=== PATIENT | female | born 1980 | race Caucasian/White ===

== ENCOUNTER 2020-07-30 12:00 | Emergency (ER) | payer SELFPAY ==
[~2020-07-30] VITALS: Ht 154.9 cm; Wt 63.6 kg
[2020-07-30 12:07] VITALS: Ht 154.9 cm; Wt 63.6 kg
[2020-07-30 12:52] LABS: BASOPHILS 0.3 % (0-2); EOSINOPHILS 1.5 % (0-7); HEMATOCRIT 41.5 % (36.0-48.0); IMMATURE GRANULOCYTES 0.3 % (0-5); LYMPHOCYTE ABS# 1.89 10x3/uL (1.18-3.74); LYMPHOCYTES 21.9 % (15-50); MCH 31.3 pg (26.0-34.0); MCHC 33.7 g/dL (31.0-37.0); MCV 92.8 fL (80.0-100.0); MEAN PLATELET VOLUME 10.4 fL (7.4-10.4); NEUTROPHIL ABS# 5.77 10x3/uL (1.56-6.13); PLATELET COUNT 237 10x3/uL (130-400); RBC 4.47 10x6/uL (4.00-5.40); RDW 12.7 % (11.5-14.5); WBC 8.6 10x3/uL (4.8-10.8)
[2020-07-30 12:55] LABS: APTT 28.5 SECONDS (22.8-39.4); INR 1.05 (0.85-1.17); PROTIME 12.6 SECONDS (11.6-15.0)
[2020-07-30 12:57] LABS: CALC OSMOLALITY 278 mosm/kg (275-300); CALCIUM 9.1 mg/dL (8.5-10.1); CARBON DIOXIDE 24.3 mmol/L (21.0-32.0); CHLORIDE - SERUM 104 mmol/L (98-107); CREATININE - SERUM 0.7 mg/dL (0.6-1.3); GLUCOSE 98 mg/dL (74-106); POTASSIUM - SERUM 3.9 mmol/L (3.5-5.1); SODIUM 139 mmol/L (136-145); UREA NITROGEN 14 mg/dL (7-18); eGFR NON AFRICAN AMERICAN > 90 mL/min (90-120)
[2020-07-30 13:02] LABS: ALBUMIN 4.4 g/dL (3.4-5.0); ALKALINE PHOSPHATASE 55 U/L (30-120); ALT (SGPT) 17 U/L (10-68); BILIRUBIN - TOTAL 0.47 mg/dL (0.2-1.3); PROTEIN - SERUM 7.5 g/dL (6.4-8.2)
[2020-07-30 14:03] LABS: BILIRUBIN NEGATIVE (NEGATIVE); KETONE SMALL mg/dL (NEGATIVE); NITRITE NEGATIVE (NEGATIVE); UROBILINOGEN NORMAL mg/dL (< 2)
[2020-07-30 14:07] LABS: AMORPHOUS SEDIMENT <1+ LPF (NONE SEEN); BACTERIA FEW HPF (NONE SEEN); GRANULAR CAST RARE LPF (NONE SEEN); SQUAMOUS EPITHELIAL 0-5 HPF (0-4); WHITE CELLS - URINE RARE HPF (0-4)
[2020-07-30] MEDS ORDERED: IBUPROFEN800 MG PO (16:50)
[2020-07-30] MEDS ORDERED: ACETAMINOPHEN500 M1 PO (16:50)
[2020-07-30] MEDS ORDERED: CYCLOBENZAPRINE10 MG PO (16:50)
[2020-07-30] MEDS ORDERED: ZOFRAN ODT4 MG/UDTAB PO (16:52)
[2020-07-30] MEDS ORDERED: ULTRAM50 MG PO (16:52)
[2020-07-30] MEDS ORDERED: FLAGYL500 MG PO (17:15)
[2020-07-30 17:56] VITALS: BP 106/65
== END 2020-07-30 17:56 | disposition home or self-care (01) ==
LOC: D.ER 12:00
PROVIDERS: Family Medicine
DX: N83.202 Unspecified ovarian cyst, left side (principal); R10.30 Lower abdominal pain, unspecified; R10.2 Pelvic and perineal pain; N28.9 Disorder of kidney and ureter, unspecified; R31.9 Hematuria, unspecified; N28.1 Cyst of kidney, acquired

== ENCOUNTER 2020-10-01 22:10 | Emergency (ER) | payer BC ==
[~2020-10-01] VITALS: Ht 154.9 cm; Wt 52.3 kg
[~2020-10-01 22:10] MED LIST: ACETAMINOPHEN500 M1 PO; CYCLOBENZAPRINE10 MG PO; FLAGYL500 MG PO; IBUPROFEN800 MG PO; ULTRAM50 MG PO; ZOFRAN ODT4 MG/UDTAB PO
[2020-10-01 22:17] VITALS: Ht 154.9 cm; Wt 52.3 kg
[2020-10-01 22:45] LABS: BASOPHILS 0.9 % (0-2); EOSINOPHILS 2.2 % (0-7); HEMATOCRIT 39.2 % (36.0-48.0); HEMOGLOBIN 13.3 g/dL (12-16); LYMPHOCYTES 37.1 % (15-50); MCH 31.3 pg (26.0-34.0); MCHC 33.8 g/dL (31.0-37.0); MCV 92.4 fL (80.0-100.0); MEAN PLATELET VOLUME 8.6 fL (7.4-10.4); MONOCYTES 10.6 % (2-11); NEUTROPHILS 49.2 % (40-80); PLATELET COUNT 248 10x3/uL (130-400); RBC 4.24 10x6/uL (4.00-5.40); RDW 13.1 % (11.5-14.5)
[2020-10-01 22:52] LABS: CALC OSMOLALITY 279 mosm/kg (275-300); CALCIUM 8.3 mg/dL (8.5-10.1); CARBON DIOXIDE 24.4 mmol/L (21.0-32.0); CHLORIDE - SERUM 106 mmol/L (98-107); CREATININE - SERUM 0.7 mg/dL (0.6-1.3); GLUCOSE 117 mg/dL (74-106); POTASSIUM - SERUM 3.5 mmol/L (3.5-5.1); SODIUM 140 mmol/L (136-145); UREA NITROGEN 13 mg/dL (7-18); eGFR NON AFRICAN AMERICAN > 90 mL/min (90-120)
[2020-10-01 23:06] LABS: ACETAMINOPHEN 29.9 ug/mL (10.0-30.0); ALBUMIN 4.1 g/dL (3.4-5.0); ALKALINE PHOSPHATASE 47 U/L (30-120); ALT (SGPT) 19 U/L (10-68); BILIRUBIN - TOTAL 0.39 mg/dL (0.2-1.3); PROTEIN - SERUM 7.1 g/dL (6.4-8.2); THYROID STIMULATING HORMONE 4.13 uIU/mL (0.36-3.74)
[2020-10-01 23:28] LABS: HCG URINE NEGATIVE (NEGATIVE)
[2020-10-01 23:30] LABS: BILIRUBIN NEGATIVE (NEGATIVE); KETONE NEGATIVE mg/dL (< 1+); NITRITE NEGATIVE (NEGATIVE); SQUAMOUS EPITHELIAL 4 HPF (0-4); UROBILINOGEN NORMAL mg/dL (< 2); WHITE CELLS - URINE 1 HPF (0-4)
[2020-10-01 23:32] LABS: UDS - AMPHET NEGATIVE QUAL (NEGATIVE); UDS - BARB NEGATIVE QUAL (NEGATIVE); UDS - BENZO NEGATIVE QUAL (NEGATIVE); UDS - COCAINE NEGATIVE QUAL (NEGATIVE); UDS - OPIATE POSITIVE QUAL (NEGATIVE); UDS - PCP NEGATIVE QUAL (NEGATIVE); UDS - THC NEGATIVE QUAL (NEGATIVE)
--- NOTE | 2020-10-02 01:01 | NUR ---
SUICIDE ASSESSMENT COMPLETED. PT DENIES SI HOWEVER TOOK TEN 7.5MG HYDROCODONE TRYING TO GET A REACTION FROM HER SPOUSE WHICH SHE REPORTS THEY HAVE BEEN ARGUING FREQUENTLY THIS WEEK. WHEN ASKED THE REACTION SHE RECEIVED FROM HER SHE REPORTED "ANGER." DR DOMINGO NOTIFIED AND SITTER ORDERED. SITTER AT BEDSIDE. NOTIFIED ED CHARGE NURSE AND ATTENDING IN REGARDS TO ASSESSMENT AND FINDINGS. RESOURCES GIVEN TO PATIENT AND SAFETY PLAN INITIATED.
[2020-10-02 04:04] LABS: SARS-CoV-2 ANTIGEN NEGATIVE- SARS-COV-2 (NEGATIVE)
[2020-10-02 04:30] VITALS: BP 100/49
== END 2020-10-02 06:58 ==
LOC: D.ER 22:10
PROVIDERS: Emergency Medicine
DX: T39.1X2A Poisoning by 4-Aminophenol derivatives, intentional self-harm, initial encounter (principal)